=== PATIENT | male | born 1975 ===

== ENCOUNTER 2021-10-19 10:31 | Emergency (ER) | payer OTHER ==
[~2021-10-19] VITALS: Ht 188 cm; Wt 95.2 kg
[2021-10-19 11:24] LABS: BASOPHILS ABSOLUTE AUTO 0.05 K/mm3 (0.00-0.23); BASOPHILS PERCENT AUTO 1 % (0-2); EOSINOPHILS ABSOLUTE AUTO 0.12 K/mm3 (0.00-0.68); EOSINOPHILS PERCENT AUTO 1 % (0-6); Hematocrit 44.6 % (37.0-53.0); Hemoglobin 15.8 g/dL (13.5-17.5); IMMATURE GRAN ABSOLUTE AUTO 0.03 K/mm3 (0.00-0.10); IMMATURE GRAN PERCENT AUTO 0 % (0-1); LYMPHOCYTES ABSOLUTE AUTO 1.36 K/mm3 (0.84-5.20); LYMPHOCYTES PERCENT AUTO 16 % (21-46); MONOCYTES ABSOLUTE AUTO 0.79 K/mm3 (0.16-1.47); MONOCYTES PERCENT AUTO 10 % (4-13); Mean Corpuscular HGB 31.6 pg (26.0-34.0); Mean Corpuscular HGB Conc 35.4 g/dL (31.5-36.5); Mean Corpuscular Volume 89 fL (80-100); Mean Platelet Volume 10.3 fL (9.1-12.4); NEUTROPHILS ABSOLUTE AUTO 5.99 K/mm3 (1.96-9.15); NEUTROPHILS PERCENT AUTO 72 % (41-73); Platelet Count 172 K/mm3 (150-400); RDW Coefficient Variation 11.9 % (11.7-14.2); White Blood Cell Count 8.34 K/mm3 (4.00-11.30)
[2021-10-19 11:41] LABS: Alanine Aminotransfer (ALT/SGP 148 U/L (12-78); Albumin, Blood 4.3 g/dL (3.4-5.0); Alk Phos 81 U/L (50-136); Anion Gap 8 mmol/L (6-16); Aspartate Aminotrans (AST/SGOT 280 U/L (12-37); Bilirubin, Total 1.1 mg/dL (0.1-1.0); Blood Urea Nitrogen 18 mg/dL (8-24); Bun/Creatinine Ratio 18.6 (12.0-20.0); CO2, Blood 22 mmol/L (21-32); Chloride, Blood 104 mmol/L (98-108); Creatinine, Blood 0.97 mg/dL (0.60-1.20); Ethanol (Alcohol), Blood, Med <3 mg/dL; Globulin, Blood 4.4 g/dL (2.2-4.0); Glomerular Filtration Rate >60 (60-); Glucose, Blood 94 mg/dL (70-99); Potassium, Blood 3.7 mmol/L (3.5-5.5); Salicylate 3.9 mg/dL (2.8-20.0); Sodium, Blood 134 mmol/L (136-145); Total Protein, Blood 8.7 g/dL (6.4-8.2)
[2021-10-19 11:42] LABS: Acetaminophen, Random <2.0 ug/mL (10.0-30.0)
== END 2021-10-19 11:44 | disposition left against medical advice (07) ==
LOC: ER 10:31
PROVIDERS: Emergency Medicine
DX: R07.9 Chest pain, unspecified (principal); I10 Essential (primary) hypertension; G62.9 Polyneuropathy, unspecified; G40.909 Epilepsy, unspecified, not intractable, without status epilepticus; F17.200 Nicotine dependence, unspecified, uncomplicated
CPT/HCPCS: 71045; 80053; 85025; 93005; 93010; 99284-25; A9270; G0480